=== PATIENT | female | born 1980 ===

== ENCOUNTER 2021-07-12 10:55 | Emergency (ER) | payer MEDICAID, SELFPAY ==
[2021-07-12 11:08] VITALS: BP 103/75; PULSE 80; RESP 18; TEMP 36.7; O2SAT 100; BMI 24.3
--- NOTE | 2021-07-12 11:14 | ECG_ITS ---
Test Reason : SEIZURE Blood Pressure : / mmHG Vent. Rate : 076 BPM Atrial Rate : 076 BPM P-R Int : 114 ms QRS Dur : 080 ms QT Int : 412 ms P-R-T Axes : 058 064 -07 degrees QTc Int : 463 ms Normal sinus rhythm Nonspecific ST abnormality Abnormal QRS-T angle, consider primary T wave abnormality Abnormal ECG When compared with ECG of 07-AUG-2015 08:16, No significant change was found Referred By: Abdoulaye White Electronically Signed By:MICHAEL ROA
--- NOTE | 2021-07-12 11:19 | ED.SEIZURE ---
HPI - Seizure General Chief Complaint: Seizure Stated Complaint: SEIZURE Time Seen by Provider: 07/12/21 11:13 History of Present Illness HPI Narrative: This is a 41 years old female presented with a generalized tonic-clonic seizure. She has history of epilepsy she is on Keppra. Patient states that she was at the dentist's the with the niece and she went outside to smoke a she does not remember what happened. She was transported here by ambulance. At this time she is awake and alert neurologically intact, she has a laceration to left eyebrow on and left knee complaint: seizure Onset (ago): hour(s) (1) Description of Episode: loss of consciousness and tonic-clonic movement Witnessed: No Trauma: Yes Seizure History: Yes Place: Outdoors Possible Precipitating Event: none Related Data Allergies Allergy/AdvReac Type Severity Reaction Status Date / Time acetaminophen [From PERCOCET] Allergy Severe VOMITING, Unverified 08/05/20 18:31 TACHYCARDIA, LOC oxycodone [From PERCOCET] Allergy Severe VOMITING, Unverified 08/05/20 18:31 TACHYCARDIA, LOC butalbital [From FIORICET] Allergy Unknown PALPITATIONS, Unverified 08/05/20 18:31 THROAT TIGHTENS caffeine [Fioricet] Allergy Unknown SOB, rash Verified 07/25/17 00:00 acetaminophen Allergy Unknown Uncoded 12/30/19 00:00 butalbital Allergy Unknown Uncoded 12/30/19 00:00 Review of Systems Review of Systems: Yes all other systems are reviewed and are negative Constitutional: Constitutional: Reports no additional constitutional complaints ENT: Reports system reviewed and no additional complaints, except as documented Cardiovascular: Cardiovascular: Reports no additional cardiovascular complaints Respiratory: Respiratory: Reports no additional respiratory complaints Neurologic: Reports Abnormal speech present [facility] Social History Social History Advance Directives: Yes Advance Directives Information Provided: Yes Advance Directives on File: No Patient : No Physical Exam Vital Signs: Vital Signs: Last Vital Signs Temp 98.0 F 07/12/21 11:08 Pulse 80 07/12/21 11:08 Resp 18 07/12/21 11:08 BP 103/75 07/12/21 11:08 Pulse Ox 100 07/12/21 11:08 Body Mass Index 24.3 Const: Other: She is awake alert , oriented x3 in not acute distress General: cooperative Nutritional Appearance: average body habitus Orientation/consciousness: oriented to person, oriented to place, oriented to time and patient oriented x3 HENMT: Other: Examination of the head eyes mouth the throat which showed a laceration about 3 cm in the left eyebrow Ears: hearing grossly normal bilaterally General nose exam: Normal external nose present Face and sinus: Yes normal facial exam Mouth: Normal oral and palatal mucosa present Throat: Yes posterior oropharynx normal Neck: Neck: Yes normal visual inspection, Yes full ROM and Yes no lymphadenopathy Thyroid: Thyroid normal Carotids: normal carotid upstroke Lymphatic: no lymphadenopathy noted Chest: Chest palpation & inspection: normal inspection of the chest Resp: Effort & Inspection: normal respiratory effort and able to speak in complete sentences Auscultation: clear to auscultation bilaterally Cardio: Jugular venous distension: no JVD Rate: regular rate Rhythm: regular rhythm GI: Inspection: Yes normal to inspection Palpation (GI): Soft to palpation, not firm, nontender and no guarding Percussion: Yes normal to percussion Auscultation: normal bowel sounds Neuro: General: oriented to person, oriented to place, oriented to time, patient oriented x3, gait normal and no focal motor deficits Cranial nerves: Yes CN's II-XII intact bilaterally Speech: Abnormal speech present Extrem: Other: There is a laceration about 2 cm in the left knee Course Reevaluation(s) Reevaluation #1: pt wants to leave AM ,she understand riska.At this time she sign AMA.She states that she missed the dose of keppra this AM MDM - Seizure Lab Data Result diagrams: 07/12/21 11:29 07/12/21 11:29 Labs: Lab Results 07/12/21 07/12/21 07/12/21 Range/Units 11:29 11:29 11:29 WBC 9.1 (4.8-10.8) X10*3/uL RBC 3.78 L (4.20-5.50) X10*6/uL Hgb 12.0 (12.0-16.0) g/dl Hct 36.4 L (37-47) % MCV 96.3 (80-98) fL MCH 31.7 (27.0-33.0) pg MCHC 33.0 (31.0-35.0) g/dl RDW 14.4 (11.0-16.0) % Plt Count 317 (160-400) X10*3/uL MPV 9.4 (9.4-12.3) fL Immature Gran % (Auto) 0.3 (0.0-0.4) % Neut % (Auto) 65.7 (45-73) % Lymph % (Auto) 25.6 (20-40) % [place] % (Auto) 6.9 (2-11) % Eos % (Auto) 1.1 (0-4) % Baso % (Auto) 0.4 (0-2) % Lymph # (Auto) 2.3 (1.2-4.9) X10*3/uL [place] # (Auto) 0.6 (0.1-1.2) X10*3/uL Eos # (Auto) 0.1 (0.0-0.4) X10*3/uL Baso # (Auto) 0.0 (0.0-0.2) X10*3/uL Abs Immat Gran (auto) 0.03 (0.00-0.03) X10*3/uL Absolute Neuts (auto) 5.9 (2.0-8.3) X10*3/uL Absolute Nucleated RBC 0.000 (0.0-0.012) X10*3/uL Nucleated RBC % (auto) 0.0 (0.0-0.2) /100WBC Sodium 140 (135-145) mmol/L Potassium 3.9 (3.3-5.1) mmol/L Chloride 106 (96-108) mmol/L Carbon Dioxide 25 (22-29) mmol/L Anion Gap 13 (12-20) BUN 6 L (9-16) mg/dL Creatinine 0.83 (0.5-1.4) mg/dL Estim Creat Clear Calc 74.0 Estimated GFR > 60 Random Glucose 111 (60-115) mg/dL Calcium 9.1 (8.4-10.2) mg/dL Total Bilirubin 0.5 (0.0-1.0) mg/dL AST 22 (5-31) U/L ALT 19 (0-31) U/L Alkaline Phosphatase 59 (39-117) U/L Troponin I High Sens < 3.5 (<3.5-17.0) ng/L Total Protein 7.8 (6.5-8.0) g/dL Albumin 4.4 (3.5-5.0) g/dL Beta HCG, Quant < 2 mIU/mL Procedures Laceration Laceration 1: Site: other (rt eyebrow/lid) Side (If applicable): right Size (cm): 3 Description: linear Depth: simple, single layer Local Anesthetic: lidocaine 1% Amount of anesthesia used (mL): 1 Skin layer closed with: nylon Size (cm): 5-0 Number of sutures: 3 Technique: simple, interrupted Laceration 2: Side (If applicable): left (knee) Size (cm): 2 Description: linear and irregular Depth: simple, single layer Local Anesthetic: lidocaine 1% Amount of anesthesia used (mL): 2 Pre-repair: wound explored and irrigated extensively Skin layer closed with: nylon Size (cm): 5-0 Number of sutures: 2 Technique: simple, interrupted Discharge Plan Discharge Clinical Impression: Generalized seizure, Laceration of left orbit, Laceration of knee, left Patient Disposition: Left Against Medical Advice Instructions: Against Medical Advice (ED), Recurrent Seizures in Adults (ED) Interventions: ED Discharge Assessment Last Done: 07/12/21 12:29 Discharge Date/Time: 07/12/21 12:30
[2021-07-12 11:38] LABS: MANUAL DIFF FLAG NO
[2021-07-12 11:39] LABS: Basophils Percent Auto 0.4 % (0-2); Eosinophils Absolute Auto 0.1 X10*3/uL (0.0-0.4); Eosinophils Percent Auto 1.1 % (0-4); Hematocrit 36.4 % (37-47); Imm Gran Abs Auto 0.03 X10*3/uL (0.00-0.03); Imm Gran Pct Auto 0.3 % (0.0-0.4); Lymphocytes Absolute Auto 2.3 X10*3/uL (1.2-4.9); Lymphocytes Percent Auto 25.6 % (20-40); Mean Corpuscular Hemoglobin 31.7 pg (27.0-33.0); Mean Corpuscular Volume 96.3 fL (80-98); Mean Platelet Volume 9.4 fL (9.4-12.3); Monocytes Absolute Auto 0.6 X10*3/uL (0.1-1.2); Monocytes Percent Auto 6.9 % (2-11); Neutrophils Absolute Auto 5.9 X10*3/uL (2.0-8.3); Neutrophils Percent Auto 65.7 % (45-73); Platelet Count 317 X10*3/uL (160-400); Red Blood Count 3.78 X10*6/uL (4.20-5.50); Red Cell Distribution Width 14.4 % (11.0-16.0); White Blood Count 9.1 X10*3/uL (4.8-10.8)
[2021-07-12] MEDS: LORazepam 1 MG TABLET PO (11:43)
[2021-07-12] MEDS: levETIRAcetam 1,000 MG TABLET 1000 MG PO (11:43)
[2021-07-12] MEDS: Lidocaine HCl 1 % MPF 5 ML VIAL SUBCUT (11:44)
[2021-07-12 12:04] LABS: Alanine Aminotransferase 19 U/L (0-31); Albumin Level 4.4 g/dL (3.5-5.0); Alkaline Phosphatase 59 U/L (39-117); Anion Gap 13 (12-20); Aspartate Amino Transferase 22 U/L (5-31); Bilirubin Total 0.5 mg/dL (0.0-1.0); Blood Urea Nitrogen 6 mg/dL (9-16); Calcium 9.1 mg/dL (8.4-10.2); Carbon Dioxide 25 mmol/L (22-29); Chloride 106 mmol/L (96-108); Estimated Glomerular Filt Rate > 60; Glucose Random 111 mg/dL (60-115); Potassium 3.9 mmol/L (3.3-5.1); Sodium 140 mmol/L (135-145); Total Protein 7.8 g/dL (6.5-8.0)
[2021-07-12 12:06] LABS: Troponin-I High Sensitivity < 3.5 ng/L (<3.5-17.0)
[2021-07-12 12:12] LABS: HCG Quantitative < 2 mIU/mL
[2021-07-16 11:52] LABS: Levetiracetam Keppra <1.0 mcg/mL (12.0-46.0)
== END 2021-07-12 12:30 | disposition left against medical advice (07) ==
PROVIDERS: Emergency Provider Emergency Medicine
DX: G40.409 Other generalized epilepsy and epileptic syndromes, not intractable, without status epilepticus (principal); S01.112A Laceration without foreign body of left eyelid and periocular area, initial encounter; S81.012A Laceration without foreign body, left knee, initial encounter; W17.89XA Other fall from one level to another, initial encounter; F17.210 Nicotine dependence, cigarettes, uncomplicated; Y93.89 Activity, other specified; Y92.531 Health care provider office as the place of occurrence of the external cause; Y99.9 Unspecified external cause status; Z79.899 Other long term (current) drug therapy
CPT/HCPCS: 12001; 12052; 36415; 80053; 80177; 84484; 84702; 85025; 93005; 99283; 99284

== ENCOUNTER 2021-10-03 13:04 | Outpatient (REF) | payer MEDICAID, SELFPAY ==
--- NOTE | ~2021-10-03 | CT_ITS ---
EXAMINATION: CT HEAD WITHOUT CONTRAST CLINICAL INFORMATION: Headache and convulsions. COMPARISON: MRI brain 04/26/2017 TECHNIQUE: Contiguous axial imaging was performed from the skull base to vertex without intravenous administration of contrast. This CT examination was performed using dose optimization techniques as appropriate, variously including the following: *Automated exposure control *Adjustment of mA and/or kV according to patient size (this includes techniques or standardized protocols for targeted exams where dose is matched to indication/reason for exam; i.e. extremities or head) *Use of iterative reconstruction technique DLP: 807 mGy-cm FINDINGS: There is no evidence of acute intracranial hemorrhage or territorial infarction. No abnormal mass effect or midline shift is seen. [place] to white matter differentiation is well preserved. There is a small arachnoid cyst in the right middle cranial fossa. The ventricles are normal in size. There is no abnormal attenuation within the brain. Small round focal defect right frontal bone, question etiology. The mastoid air cells and visualized portions of the paranasal sinuses are well aerated. CT/CT head/brain wo con IMPRESSION: No acute intracranial process seen. Right middle cranial fossa arachnoid cyst, stable since MRI brain 04/26/2017.
== END 2021-10-03 13:05 | disposition home or self-care (01) ==
LOC: HO.CT 13:04
PROVIDERS: PCP Internal Medicine Geriatric Medicine; Referring Provider Internal Medicine Geriatric Medicine; Visit Provider Nurse Practitioner Primary Care
DX: R51.9 Headache, unspecified (principal); R56.9 Unspecified convulsions
CPT/HCPCS: 70450

== ENCOUNTER 2022-10-23 10:10 | Outpatient (REF) | payer MEDICAID, SELFPAY ==
--- NOTE | ~2022-10-23 | US_ITS ---
EXAMINATION: US THYROID CLINICAL INFORMATION: Nontoxic single thyroid nodule. COMPARISON: None TECHNIQUE: Linear transducer grayscale and color Doppler examination with attention to the region of the thyroid. FINDINGS: SIZE: Measurements of the thyroid lobes and nodules are given in sagittal, anteroposterior and transverse dimensions respectively. Right Thyroid Lobe: 6.1 x 2.4 x 2.2 cm, volume 16.5 mL. Parenchyma: The gland echotexture is heterogeneous. Thyroid vascularity is increased. Left Thyroid Lobe: 5.6 x 2.3 x 1.8 cm, volume 13.2 mL. Parenchyma: The gland echotexture is heterogeneous. Thyroid vascularity is increased. Isthmus: 1.0 cm in maximum AP dimension. Estimated total number of nodules greater than or equal to 1 cm: 0. School Admissions Representative nodules are described as follows: 1. Location: Right mid pole/medial. Size: 0.3 x 0.2 x 0.3 cm, volume 0.008 mL. Nodule characteristics: Composition: Solid (2). Echogenicity: Hyperechoic (1). Shape: Not taller than wide (0). Margins: Smooth (0). Echogenic Foci: None (0). ACR TI-RADS total points: 3 ACR TI-RADS category: 3 NODES: No lymphadenopathy is seen in the tissue surrounding the thyroid gland. US/US thyroid IMPRESSION: The thyroid gland is quite heterogeneous and also enlarged and hypervascular suggesting autoimmune disorder or thyroiditis. Background of heterogeneity significantly limits evaluation of small nodules, however accounting for this limitation a 0.3 cm hyperechoic solid TR 3 nodule is noted in the right mid gland, not meeting size criteria for further evaluation according to ACR TI RADS guidelines. A discrete thyroid nodule greater than 1 cm is not identified in this examination. Recommend continue follow-up by imaging according to clinical criteria. ACR TI-RADS RECOMMENDATION REFERENCE: Ultrasound-guided fine-needle aspiration, followup ultrasound, no further follow up. * TR1 (0 point) and TR 2 (2 points): No FNA or follow up. * TR3 (3 points): FNA if more than or equal to 2.5 cm in maximum dimension, followup ultrasound in 1, 3 and 5 years if 1.5 to 2.4 cm in maximum dimension. * TR4 (4-6 points): FNA if more than or equal to 1.5 cm in maximum dimension, followup ultrasound in 1, 2, 3 and 5 years if 1 to 1.4 cm in maximum dimension. * TR5 (more than or equal to 7 points): FNA if more than or equal to 1 cm in maximum dimension, followup ultrasound every year for 5 years if 0.5 to 0.9 cm in maximum dimension. * TR3, TR4 or TR5 nodules that are below the size threshold for followup receive no follow up.
== END 2022-10-23 10:11 | disposition home or self-care (01) ==
LOC: HO.US 10:10
PROVIDERS: Visit Provider Internal Medicine Geriatric Medicine
DX: E04.1 Nontoxic single thyroid nodule (principal)
CPT/HCPCS: 76536

== ENCOUNTER 2023-11-30 18:11 | Emergency (ER) | payer MEDICAID, SELFPAY ==
[2023-11-30 18:55] VITALS: BP 123/85; PULSE 72; RESP 18; TEMP 36.1; O2SAT 96; BMI 26.4
--- NOTE | 2023-11-30 18:55 | ED.GENADULT ---
HPI - General Adult General Chief complaint: General Medical Stated complaint: private Time Seen by Provider: 11/30/23 22:59 Source: patient Mode of arrival: ambulatory History of Present Illness HPI narrative: 43-year-old female with rectal pain for 3 days without associated fever chills. Related Data Allergies Allergy/AdvReac Type Severity Reaction Status Date / Time acetaminophen [From PERCOCET] Allergy Severe VOMITING, Unverified 08/05/20 18:31 TACHYCARDIA, LOC oxycodone [From PERCOCET] Allergy Severe VOMITING, Unverified 08/05/20 18:31 TACHYCARDIA, LOC butalbital [From FIORICET] Allergy Unknown PALPITATIONS, Unverified 08/05/20 18:31 THROAT TIGHTENS caffeine [Fioricet] Allergy Unknown SOB, rash Verified 07/25/17 00:00 acetaminophen Allergy Unknown Unknown Uncoded 11/30/23 18:55 butalbital Allergy Unknown Unknown Uncoded 11/30/23 18:55 Review of Systems Review of Systems: Pertinent positives and negatives as stated in HPI PMFSH Past Medical History Source: nursing notes reviewed Onset Date is defined in the Problem List Problems that require an onset date and time if occurred within 24 hrs of arrival to the ED Aortic Dissection and Rupture; Neurologic impairment; Cardiopulmonary Arrest; Endotracheal Intubation; Insertion or Replacement of Mechanical Circulatory Assist Device Surgical History History of hemorrhoidectomy Social History Social History Advance Directives: No Advance Directives Information Provided: No Physical Exam ED Vital Signs: Vital Signs - 24 hr 11/30/23 18:55 11/30/23 22:33 Temperature 96.9 F 97.9 F Pulse Rate 72 71 Respiratory Rate 18 18 Blood Pressure 123/85 134/83 Pulse Oximetry 96 99 Oxygen Delivery Method Room Air Room Air BMI result Body Mass Index 26.4 VITAL SIGNS: Reviewed. GENERAL: Well developed, well nourished, in no acute distress. HEAD: Normocephalic/atraumatic EYES: PERRLA, EOMI LUNGS: Normal breath sounds. No adventitious sounds or accessory muscle use. SpO2<99> CARDIOVASCULAR: Regular rate and rhythm without noted murmurs ABDOMEN: Soft, non-tender, non-distended with bowel sounds. 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 EXTREMITIES: No cyanosis, clubbing or edema. SKIN: Inspection of the skin reveals no rashes NEUROLOGIC: Alert and oriented x 4. Strength and sensation to light touch were grossly intact x 4. Course Course Course Narrative: This is an RME: Additional HPI, ROS, PE not included below will be deferred to primary provider. Patient is a 43-year-old female who presents to the emergency department of rectal pain reportedly secondary to hemorrhoids, states pain is severe 10/10, can not sit down due to pain. Tried OTC creams without relief. Intermittent bleeding. Plan: basic labs, placed in WR pending bed availability for further examination Medical Decision Making Medical Decision Making MDM Narrative: 43-year-old female with history and clinical presentation consistent with hemorrhoid and no evidence thrombosed or significantly inflamed. Patient received topical lidocaine for symptom relief and will recommend Sitz baths as well as preparation H and instructed her to follow-up with primary care doctor for discussion regarding a referral to follow-up with gastroenterology. I reviewed all investigations and I do note a leukocytosis without left shift, patient is afebrile and no obvious abscess or fluctuance identified on clinical exam. Otherwise, there is no evidence of anemia or thrombocytopenia. Chemistries do not demonstrate an GERHARD or electrolyte/liver enzyme derangements. Patient is otherwise discharged home in stable condition with instructions follow-up with primary care doctor. Differential Diagnosis Differential Diagnoses: The differential diagnosis associated with the presentation includes Please see the discussion above Admission/Observation Consideration of admission/observation: Escalation of care including admission/observation considered Please see the discussion above Lab Data MDM Lab Attestation statement: I reviewed the patient's lab results. Please see the discussion above 11/30/23 20:11 11/30/23 20:11 Labs: Lab Results 11/30/23 Range/Units 20:11 WBC 14.6 H (4.8-10.8) X10*3/uL RBC 3.82 L (4.20-5.50) X10*6/uL Hgb 12.0 (12.0-16.0) g/dl Hct 35.8 L (37.0-47.0) % MCV 93.7 (80.0-98.0) fL MCH 31.4 (27.0-33.0) pg MCHC 33.5 (31.0-35.0) g/dl RDW 13.0 (11.0-16.0) % Plt Count 355 (160-400) X10*3/uL MPV 9.3 L (9.4-12.3) fL Immature Gran % (Auto) 0.3 (0.0-0.4) % Neut % (Auto) 59.7 (45-73) % Lymph % (Auto) 32.3 (20-40) % [place] % (Auto) 6.2 (2-11) % Eos % (Auto) 1.1 (0-4) % Baso % (Auto) 0.4 (0-2) % Lymph # (Auto) 4.7 (1.2-4.9) X10*3/uL [place] # (Auto) 0.9 (0.1-1.2) X10*3/uL Eos # (Auto) 0.2 (0.0-0.4) X10*3/uL Baso # (Auto) 0.1 (0.0-0.2) X10*3/uL Abs Immat Gran (auto) 0.05 H (0.00-0.03) X10*3/uL Absolute Neuts (auto) 8.7 H (2.0-8.3) x10*3/uL Absolute Nucleated RBC 0.000 (0.0-0.012) X10*3/uL Nucleated RBC % (auto) 0.0 (0.0-0.2) /100WBC Sodium 139 (135-145) mmol/L Potassium 4.1 (3.3-5.1) mmol/L Chloride 104 (96-108) mmol/L Carbon Dioxide 26 (22-29) mmol/L Anion Gap 13 (12-20) BUN 9 (9-16) mg/dL Creatinine 0.79 (0.5-1.4) mg/dL Estim Creat Clear Calc 79.1 Estimated GFR > 60 Random Glucose 93 (60-115) mg/dL Calcium 9.7 D (8.4-10.2) mg/dL Total Bilirubin 0.4 (0.0-1.0) mg/dL AST 15 (5-31) U/L ALT 13 (0-31) U/L Alkaline Phosphatase 52 (39-117) U/L Total Protein 8.5 H (6.5-8.0) g/dL Albumin 4.7 (3.5-5.0) g/dL Discharge Plan Discharge Clinical Impression: External hemorrhoids Patient Disposition: Home, Self-Care Instructions: Hemorrhoids (ED), Sitz Bath (DC) Additional Instructions: 1. Se recomienda aplicar lidoca?na de 2 a 3 veces al d?a para aliviar los s?ntomas. 2. Revise la informaci?n sobre el ba?o de asiento, ya que tambi?n le brindar? un alivio adicional. Recomendar la preparaci?n de venta mick H. 3. Zeke un seguimiento con valdez m?dico de atenci?n primaria para discutir mohit derivaci?n a Gastroenterolog?a para el tratamiento definitivo de vianey hemorroides. Regrese a la natalee de emergencias si los s?ntomas empeoran. 1. Recommend that you apply the lidocaine 2 to 3 times a day for symptom relief. 2. Please review the information regarding Sitz bath as this will also provide additional relief. Recommend [id number] preparation H. 3. Please follow-up with your primary care doctor to discuss a referral to Gastroenterology for definitive treatment of your hemorrhoids. Return to the ER for any worsening symptoms. Referrals: Name,MD Augustin [Primary Care Provider] - Print Language: Wolof
[2023-11-30 20:21] LABS: MANUAL DIFF FLAG NO
[2023-11-30 20:27] LABS: Basophils Absolute Auto 0.1 X10*3/uL (0.0-0.2); Basophils Percent Auto 0.4 % (0-2); Eosinophils Absolute Auto 0.2 X10*3/uL (0.0-0.4); Eosinophils Percent Auto 1.1 % (0-4); Hematocrit 35.8 % (37.0-47.0); Imm Gran Abs Auto 0.05 X10*3/uL (0.00-0.03); Imm Gran Pct Auto 0.3 % (0.0-0.4); Lymphocytes Absolute Auto 4.7 X10*3/uL (1.2-4.9); Lymphocytes Percent Auto 32.3 % (20-40); Mean Corpuscular HGB Conc 33.5 g/dl (31.0-35.0); Mean Corpuscular Hemoglobin 31.4 pg (27.0-33.0); Mean Corpuscular Volume 93.7 fL (80.0-98.0); Mean Platelet Volume 9.3 fL (9.4-12.3); Monocytes Absolute Auto 0.9 X10*3/uL (0.1-1.2); Monocytes Percent Auto 6.2 % (2-11); Neutrophils Absolute Auto 8.7 x10*3/uL (2.0-8.3); Neutrophils Percent Auto 59.7 % (45-73); Platelet Count 355 X10*3/uL (160-400); Red Blood Count 3.82 X10*6/uL (4.20-5.50); White Blood Count 14.6 X10*3/uL (4.8-10.8)
[2023-11-30 20:40] LABS: Alanine Aminotransferase 13 U/L (0-31); Albumin Level 4.7 g/dL (3.5-5.0); Alkaline Phosphatase 52 U/L (39-117); Anion Gap 13 (12-20); Aspartate Amino Transferase 15 U/L (5-31); Bilirubin Total 0.4 mg/dL (0.0-1.0); Blood Urea Nitrogen 9 mg/dL (9-16); Calcium 9.7 mg/dL (8.4-10.2); Carbon Dioxide 26 mmol/L (22-29); Chloride 104 mmol/L (96-108); Creatinine Clr Calc Pharmacy 79.1; Estimated Glomerular Filt Rate > 60; Glucose Random 93 mg/dL (60-115); Potassium 4.1 mmol/L (3.3-5.1); Sodium 139 mmol/L (135-145); Total Protein 8.5 g/dL (6.5-8.0)
[2023-11-30 22:33] VITALS: BP 134/83; PULSE 71; RESP 18; TEMP 36.6; O2SAT 99
--- NOTE | 2023-11-30 23:40 | PC.NURSE ---
pt growing increasingly less patient with discharge process pt and pt partner made aware X4 that this rn was waiting for discharge to be placed
[2023-12-01] MEDS: Lidocaine HCl 2 % Urojet 10 ML JEL.PF.APP TOPICAL (00:22)
--- NOTE | 2023-12-01 00:40 | PC.NURSE ---
pt medicated according to mar. pt refused final set of vital signs at time of discharge. pt ambulatory at discharge. pt partner at bedside. pt provided with discharge packet. pt verbalized understanding of discharge plan
--- NOTE | 2023-12-01 02:30 | PC.NURSE ---
this rn assumed care of pt from waiting room @ [id number]. pt partner at bedside
== END 2023-12-01 02:34 | disposition home or self-care (01) ==
PROVIDERS: Nurse Practitioner Family; Emergency Provider Student in an Organized Health Care Education/Training Program; PCP Internal Medicine Geriatric Medicine
DX: K64.4 Residual hemorrhoidal skin tags (principal); Z79.899 Other long term (current) drug therapy
CPT/HCPCS: 36415; 80053; 85025; 99284

== ENCOUNTER 2024-05-23 15:06 | Emergency (ER) | payer MEDICAID, SELFPAY ==
[2024-05-23 15:11] VITALS: BP 153/80; PULSE 93; RESP 18; O2SAT 100; BMI 22.9
--- NOTE | 2024-05-23 15:15 | ED_ITS ---
HPI - General Adult General Chief complaint: Allergic Reaction Stated complaint: Bee sting to head Related Data Allergies Allergy/AdvReac Type Severity Reaction Status Date / Time acetaminophen [From PERCOCET] Allergy Severe VOMITING, Verified 05/23/24 15:18 TACHYCARDIA, LOC oxycodone [From PERCOCET] Allergy Severe VOMITING, Verified 05/23/24 15:18 TACHYCARDIA, LOC butalbital [From FIORICET] Allergy Unknown PALPITATIONS, Verified 05/23/24 15:18 THROAT TIGHTENS caffeine [Fioricet] Allergy Unknown SOB, rash Verified 05/23/24 15:18 acetaminophen Allergy Unknown Unknown Uncoded 11/30/23 18:55 butalbital Allergy Unknown Unknown Uncoded 11/30/23 18:55 PMFSH Past Medical History Surgical History History of hemorrhoidectomy Social History Social History Substance Use Type: Marijuana Physical Exam ED Vital Signs: Vital Signs - 24 hr 05/23/24 15:11 Pulse Rate 93 Respiratory Rate 18 Blood Pressure 153/80 H Pulse Oximetry 100 Oxygen Delivery Method Room Air BMI result Body Mass Index 22.9 Course Course Course Narrative: This is an RME done by JL Rolon: Additional HPI, ROS, PE not included below will be deferred to primary provider. 44 yo female with no past medical history presenting with pain on forehead and difficulty breathing after bee sting 10 minutes ago. Patient in panic and poor historian. States she is allergic to bees unclear reaction. Her and assistant maintenance manager in triage yelling at this PA-C and nurse for water and yelling that she needs help She is speaking in full sentences, controlling secretions well. 100% on RA w/ out labored breathing. Appearance: Alert.? Oriented X3.? No acute cardiopulmonary distress distress.? Head: Normocephalic, atraumatic, no step-offs or deformities ENT: No edema to face or lips or tongue Neck: Normal inspection.? Neck supple.? CVS: Pulses normal.? Respiratory: No respiratory distress.? Skin: ? Normal skin color. Extremities: 5/5 strength to bilateral upper and lower extremities Neuro: Oriented X 3.? No motor deficit.? No sensory deficit. Immediately spoke to charge who gave paitent a room patient brought back to room and still screaming and shouting that they need a doctor due to headache. I explained to them meds were ordered and somone would be in soon then nursing spoke to patient and shortly after patient left states shes going to [facility] [place]. Discharge Plan Discharge Clinical Impression: Eloped from emergency department Patient Disposition: Left W/O Completing Treatment
--- NOTE | 2024-05-23 15:26 | PC.NURSE ---
pt triaged w bee sting to head, pratibha back from triage to Rm 5, once in bed pt writhing in bed, yelling for doctor, security at bedside. PA explaining that medications are ordered, needs an IV. pt walked out w partner. LWCT, provider aware.
== END 2024-05-23 15:36 | disposition left against medical advice (07) ==
PROVIDERS: Emergency Provider Emergency Medicine; PCP Internal Medicine Geriatric Medicine
DX: R51.9 Headache, unspecified (principal); T63.441A Toxic effect of venom of bees, accidental (unintentional), initial encounter; Y92.9 Unspecified place or not applicable
CPT/HCPCS: 99281